=== PATIENT | male | born 1980 | race Caucasian/White ===

== ENCOUNTER → 2021-03-28 | Emergency (ER) | payer MEDICAID | END | disposition left against medical advice (07) | LOC: ER 10:07 | DX: R22.0 Localized swelling, mass and lump, head (principal); Z53.21 Procedure and treatment not carried out due to patient leaving prior to being seen by health care provider ==

== ENCOUNTER 2022-04-29 13:28 | Emergency (ER) | payer MEDICAID ==
[~2022-04-29] VITALS: Ht 180.3 cm; Wt 103.0 kg
[2022-04-29 15:13] VITALS: BP 127/87
[2022-04-29] MEDS ORDERED: KETOROLAC TROMETH 30 MG/ML 1ML VIAL IM ONE (17:00)
[2022-04-29] MEDS ORDERED: CYCL-839 PO (17:02)
[2022-04-29] MEDS ORDERED: IBUP600T28 PO (17:02)
== END 2022-04-29 17:02 | disposition home or self-care (01) ==
LOC: ER 13:28
DX: S46.912A Strain of unspecified muscle, fascia and tendon at shoulder and upper arm level, left arm, initial encounter (principal); S16.1XXA Strain of muscle, fascia and tendon at neck level, initial encounter; X50.0XXA Overexertion from strenuous movement or load, initial encounter; X50.9XXA Other and unspecified overexertion or strenuous movements or postures, initial encounter; Y93.89 Activity, other specified; Y92.89 Other specified places as the place of occurrence of the external cause; Y99.8 Other external cause status
CPT/HCPCS: 72040; 73030; 96372; 99284; J1885